=== PATIENT | male | born 1980 | race Caucasian/White ===

== ENCOUNTER 2021-05-22 16:42 | Emergency (ER) | payer OTHER ==
[~2021-05-22] VITALS: Ht 195.6 cm; Wt 90.7 kg
[2021-05-22] MEDS ORDERED: CEPHALEXIN500 MG PO (18:30)
[2021-05-22] MEDS ORDERED: BACTRIM DS TAB1 EACH PO (18:30)
[2021-05-22 18:43] VITALS: BP 134/72
== END 2021-05-22 18:44 | disposition left against medical advice (07) ==
LOC: M.ERS 16:42
DX: M71.121 Other infective bursitis, right elbow (principal); L03.113 Cellulitis of right upper limb